=== PATIENT | male | born 1965 | race Caucasian/White ===

== ENCOUNTER 2017-09-28 10:00 | Emergency (ER) | payer SELFPAY ==
[~2017-09-28] VITALS: Ht 175.3 cm; Wt 63.6 kg
[2017-09-28] MEDS ORDERED: KEFLEX500 M1 PO (10:46)
[2017-09-28 10:48] LABS: URINE BILIRUBIN - DIPSTICK NEGATIVE (NEGATIVE); URINE BLOOD DIPSTICK NEGATIVE (NEGATIVE); URINE CLARITY CLOUDY; URINE COLOR YELLOW; URINE GLUCOSE - DIPSTICK NEGATIVE (NEGATIVE); URINE KETONE NEGATIVE (NEGATIVE); URINE LEUK ESTERASE NEGATIVE (NEGATIVE); URINE NITRITE - DIPSTICK NEGATIVE (Negative); URINE PROTEIN - DIPSTICK NEGATIVE (NEG-TRACE); URINE SPECIFIC GRAVITY 1.015; URINE UROBILINOGEN - DIPSTICK 0.2 E.U./dL (0.2)
[2017-09-28 10:56] LABS: URINE AMORPH SEDIMENT MANY hpf (NONE-FER)
[2017-09-28 11:00] VITALS: BP 122/89
[2017-09-28] MEDS ORDERED: ZOFRAN ODT4 MG PO (11:00)
== END 2017-09-28 11:00 | disposition home or self-care (01) | DRG 690 ==
LOC: ED 10:00
PROVIDERS: Emergency Medicine
DX: N39.0 Urinary tract infection, site not specified (principal); F41.9 Anxiety disorder, unspecified; N41.1 Chronic prostatitis

== ENCOUNTER 2017-10-09 19:42 | Emergency (ER) | payer SELFPAY ==
[~2017-10-09] VITALS: Ht 175.3 cm; Wt 73.0 kg
[~2017-10-09 19:42] MED LIST: KEFLEX500 M1 PO; ZOFRAN ODT4 MG PO
[2017-10-09 20:18] LABS: HEMATOCRIT 44.8 % (39.0-50.0); MEAN CORPUSCULAR HGB 31.4 pG CALC (26.0-32.0); MEAN CORPUSCULAR HGB CONC 35.7 g/L CALC (32.0-36.0); RED BLOOD COUNT 5.09 mill/uL (4.70-6.10); RED CELL DISTRI WIDTH 13.7 % (11.5-15.5)
[2017-10-09 20:32] LABS: ALBUMIN 4.4 g/dL (3.2-5.0); ALKALINE PHOSPHATASE 65 u/l (38-126); AMYLASE 97 u/l (30-110); ANION GAP 17 (6-22 (CALC)); BILIRUBIN, TOTAL 1.1 mg/dL (0.0-1.4); BUN 16 mg/dL (9-20); BUN/CREATININE RATIO 23 (12-20 (CALC)); CARBON DIOXIDE 27 mmol/l (22-30); CHLORIDE 89 mmol/l (95-108); CREATININE 0.7 mg/dL (0.7-1.3); GFR > 60 ML/MIN (>=60 (CALC)); GFR FOR AFR.AMER. > 60 ML/MIN (>=60 (CALC)); LIPASE 453 u/l (23-300); MAGNESIUM 1.9 mg/dL (1.6-2.3); POTASSIUM 4.6 mmol/l (3.5-5.1); SGOT/AST 23 u/l (17-59); SGPT/ALT 34 u/l (21-72); SODIUM 129 mmol/l (137-146); TOTAL PROTEIN 7.3 g/dL (6.3-8.2)
[2017-10-09 21:09] LABS: URINE BILIRUBIN - DIPSTICK NEGATIVE (NEGATIVE); URINE BLOOD DIPSTICK NEGATIVE (NEGATIVE); URINE COLOR YELLOW; URINE GLUCOSE - DIPSTICK NEGATIVE (NEGATIVE); URINE KETONE 15 mg/dL (NEGATIVE); URINE LEUK ESTERASE NEGATIVE (NEGATIVE); URINE NITRITE - DIPSTICK NEGATIVE (Negative); URINE PROTEIN - DIPSTICK NEGATIVE (NEG-TRACE); URINE UROBILINOGEN - DIPSTICK 0.2 E.U./dL (0.2)
[2017-10-09 21:36] LABS: URINE CLARITY CLEAR
[2017-10-09] MEDS ORDERED: AMBIEN10 MG PO (21:54)
[2017-10-09] MEDS ORDERED: EQ MAGNESIUM CI1 SOL PO (21:54)
[2017-10-10 00:19] VITALS: BP 149/88
== END 2017-10-09 22:15 | disposition home or self-care (01) | DRG 392 ==
LOC: ED 19:42
PROVIDERS: Family Medicine
DX: K59.00 Constipation, unspecified (principal); E87.1 Hypo-osmolality and hyponatremia; G47.00 Insomnia, unspecified; R53.1 Weakness
CPT/HCPCS: J2060

== ENCOUNTER 2017-11-03 11:26 | Observation (INO) | payer SELFPAY ==
[~2017-11-03] VITALS: Ht 175.3 cm; Wt 57.0 kg
[~2017-11-03 11:26] MED LIST changes: +AMBIEN10 MG PO; +EQ MAGNESIUM CI1 SOL PO
[2017-11-03] MEDS ORDERED: CITALOPRAM20 MG PO (11:34)
[2017-11-03] MEDS ORDERED: LORAZEPAM0.5 MG PO (11:35)
--- NOTE | 2017-11-03 11:36 | NUR ---
PT TO ROOM FOR EXAM
--- NOTE | 2017-11-03 11:44 | NUR ---
WHILE SPEAKING WITH DOCTOR PT BEGINS TELLING DOCTOR THAT HE IS HAVING CHEST PRESSURE ALSO, NOT BEING ABLE TO SLEEP AT NIGHT, CRYING, STATES HE THINKS IT IS ALL ANXIETY.
--- NOTE | 2017-11-03 11:55 | NUR ---
UNABLE TO LOCATE BLADDER SCANNER ON ICU/MED SURG/PACU/IV THERAPY OR OR. NOTIFIED, WILL DO A CATHETER TO CHECK HOW MUCH URINE IS IN BLADDER
--- NOTE | 2017-11-03 12:05 | NUR ---
CATHED PT FOR URINE AND AMOUNT IN BLADDER, ONLY 200CC OF DARK YELLOW URINE OBTAINED. PT TOLERATED WELL
[2017-11-03 12:19] LABS: HEMATOCRIT 41.3 % (39.0-50.0); HEMOGLOBIN 15.1 g/dl (14.0-18.0); IMMATURE GRANULOCYTES 0.7 % (0.0-1.0); MEAN CELL VOLUME 85.9 fL CALC (80.0-100.0); MEAN CORPUSCULAR HGB 31.4 pG CALC (26.0-32.0); MEAN CORPUSCULAR HGB CONC 36.6 g/L CALC (32.0-36.0); NEUT# 3.02 thou/uL (1.82-7.42); RED BLOOD COUNT 4.81 mill/uL (4.70-6.10); RED CELL DISTRI WIDTH 13.8 % (11.5-15.5)
[2017-11-03 12:23] LABS: ALBUMIN 4.2 g/dL (3.2-5.0); ALKALINE PHOSPHATASE 63 u/l (38-126); ANION GAP 19 (6-22 (CALC)); BILIRUBIN, TOTAL 1.6 mg/dL (0.0-1.4); BUN 12 mg/dL (9-20); BUN/CREATININE RATIO 19 (12-20 (CALC)); CARBON DIOXIDE 19 mmol/l (22-30); CHLORIDE 93 mmol/l (95-108); CREATININE 0.7 mg/dL (0.7-1.3); GFR > 60 ML/MIN (>=60 (CALC)); GFR FOR AFR.AMER. > 60 ML/MIN (>=60 (CALC)); LIPASE 343 u/l (23-300); POTASSIUM 3.8 mmol/l (3.5-5.1); SGOT/AST 23 u/l (17-59); SGPT/ALT 40 u/l (21-72); SODIUM 128 mmol/l (137-146); TOTAL PROTEIN 7.3 g/dL (6.3-8.2)
[2017-11-03 12:26] LABS: URINE BILIRUBIN - DIPSTICK NEGATIVE (NEGATIVE); URINE BLOOD DIPSTICK NEGATIVE (NEGATIVE); URINE COLOR YELLOW; URINE GLUCOSE - DIPSTICK NEGATIVE (NEGATIVE); URINE KETONE >=80 mg/dL (NEGATIVE); URINE LEUK ESTERASE NEGATIVE (NEGATIVE); URINE NITRITE - DIPSTICK NEGATIVE (Negative); URINE PH 7.5 (4.5-8.0); URINE PROTEIN - DIPSTICK NEGATIVE (NEG-TRACE); URINE UROBILINOGEN - DIPSTICK 0.2 E.U./dL (0.2)
--- NOTE | 2017-11-03 12:27 | NUR ---
PT RESTING QUIETLY, NO CHEST PRESSURE AT THIS TIME
[2017-11-03 12:32] LABS: BARBITURATES NEGATIVE (NEGATIVE); COCAINE NEGATIVE (NEGATIVE); METHADONE NEGATIVE (NEGATIVE); OXCYCODONE NEGATIVE (NEGATIVE); TETRAHYDROCANNABIONOL NEGATIVE (NEGATIVE); TRICYLIC ANTIDEPRESSANTS NEGATIVE (NEGATIVE)
[2017-11-03 12:34] LABS: URINE CLARITY SL CLOUDY
--- NOTE | 2017-11-03 12:56 | NUR ---
STOOD OUTSIDE OF PTS DOOR CHARTING FOR SEVERAL MIN, NO TWITCHING NOTED, SOON I WALKED INTO PTS ROOM, PT BEGAN TWITCHING ALL OVER. ASKED PT IF THERE WAS A REASON FOR THIS AND HE SAID HE JUST DIDNT HAVE THE URGE TO DO SO BEFORE.
--- NOTE | 2017-11-03 13:25 | NUR ---
FLUIDS INFUSING, EMS IV SITE HEALTHY. PT SPEAKING TO DOCTOR AABOUT POSSIBLE ADMISSION
--- NOTE | 2017-11-03 13:32 | NUR ---
PT DENIES ANY CHEST PAIN, ALTHOUGH I HAVE ASKED SEVERAL TIMES SINCE ARRIVAL. PT SISTER IN LAW REMAINS AT BEDSIDE. VITAL SIGNS STABLE.
--- NOTE | 2017-11-03 14:01 | NUR ---
PT UP TO BEDSIDE COMMODE WITH ASSISTANCE.
--- NOTE | 2017-11-03 14:13 | NUR ---
NO STOOL SO FAR, STARTED PT ON MAG CITRATE PER ORDER, AWAITING BED ASSIGNMENT FOR ADMISSION
--- NOTE | 2017-11-03 14:15 | NUR ---
PT REMAINS CHEST PAIN FREE, PT STATES HE NEVER REALLY HAD CHEST PAIN JUST AN ANXIETY FEELING LIKE HE NORMALLY GETS.
--- NOTE | 2017-11-03 14:34 | NUR ---
PT CAME FROM ER VIA STRETCHER BY DOMINGO. FLAME CUTTER IN ROOM FOR STAND BY ASSIST TO SCALE THEN TO BED. SAFETY PRECAUTIONS REINFORCED AND CALL LIGHT IN REACH.
[2017-11-03 14:35] VITALS: BP 134/76
--- NOTE | 2017-11-03 14:38 | NUR ---
REPORT GIVEN TO FLOOR FOR CONTINUATION OF CARE. PT TAKEN TO FLOOR WITH TELEMETRY
--- NOTE | 2017-11-03 15:34 | NUR ---
HENNY BEARD AT BEDSIDE TO ASSESS PT. FAMILY IN ROOM. ASSESSMENT DONE TELE IN PLACE. RESPS EVEN AND UNLABORED. # 20 LAC THAT APPEARS HEALTHY. PT STATED THAT HE HAS BEEN FEELING WEAK FOR DAYS. CALL LIGHT IN REACH.
[2017-11-03 16:18] VITALS: BP 131/77
--- NOTE | 2017-11-03 19:00 | NUR ---
PT RESTING IN BED WATCHING TV AT THIS TIME. PT IS ALERT AND ORIENTED X3. PERRLA. SHIFT ASSESSMENT COMPLETED AT THIS TIME. IV PATENT. CALL LIGHT IN REACH. PT VERBALIZED UNDERSTANDING OF HOW TO USE THE CALL LIGHT. PLAN OF CARE REVIEWED WITH PT. WILL CONTINUE TO MONITOR
[2017-11-03 20:08] VITALS: BP 114/72
--- NOTE | 2017-11-03 23:26 | NUR ---
PT REPORTS HAVING A SMALL FORMED BOWEL MOVEMENT.
--- NOTE | 2017-11-04 | NUR ---
PT RESTING IN BED WITH EYES CLOSED. RESP ARE EVEN AND UNLABORED. NO DISTRESS NOTED. CALL LIGHT IN REACH. WILL CONTINUE TO MONITOR
[2017-11-04 00:44] VITALS: BP 107/66
--- NOTE | 2017-11-04 04:00 | NUR ---
PT RESTING IN BED WITH EYES CLOSED. RESP ARE EVEN AND UNLABORED. NO DISTRESS NOTED. CALL LIGHT IN REACH. WILL CONTINUE TO MONITOR
[2017-11-04 04:26] VITALS: BP 122/75
--- NOTE | 2017-11-04 04:30 | NUR ---
LAB INTO DRAW AM LABS
--- NOTE | 2017-11-04 07:11 | NUR ---
REPORT RECEIVED BY BENITO. PT IS RESTING IN BED WITH NO S/S OF DISTRESS NOTED. PT DENEIS NEEDS AT THIS TIME.CALL LIGHT IN REACH.
[2017-11-04 07:31] VITALS: BP 115/73
--- NOTE | 2017-11-04 08:00 | NUR ---
ASSESSMENT DONE TELE IN PLACE. RESPS EVEN AND UNLABORED. PT DENIES PAIN AT THIS TIME. PT IS ANXIOUS TX VERBAL CUES AND POC DISCUSSED PT VERBALIZED UNDERSTANDING. NS 100ML/HR INFUSING WELL. SAFETY PRECAUTIONS REINORCED AND CALL LIGHT IN REACH.
--- NOTE | 2017-11-04 08:40 | NUR ---
HENNY BEARD AT BEDSIDE TO ASSESS PT.
[2017-11-04 11:09] VITALS: BP 100/74
--- NOTE | 2017-11-04 12:03 | NUR ---
PT IS SEMI FOWLERS IN BED. PT STATED THAT HE IS TRYING TO EAT HIS LUNCH. PT DENIES NEEDS AT THIS TIME. CALL LIGHT IN REACH.
--- NOTE | 2017-11-04 13:25 | NUR ---
DR. URIAS AT BEDSIDE TO ASSESS PT.
[2017-11-04] MEDS ORDERED: LORAZEPAM0.5 MG PO (14:39)
--- NOTE | 2017-11-04 15:50 | NUR ---
Discharge instructions given. Patient verbalizes understanding of same. Discharged in stable condition via Wheelchair to Home with staff. All belongings sent with pt.
== END 2017-11-04 15:50 | disposition home or self-care (01) | DRG 313 ==
LOC: ED 11:26 → ED-I 11:50 → ED 11:50 → ED-I 13:14 → ED 13:33 → MS2 13:34
PROVIDERS: Family Medicine; ADMIT Internal Medicine; ATTEND Internal Medicine
DX: R07.89 Other chest pain (principal); F32.9 Major depressive disorder, single episode, unspecified; F41.1 Generalized anxiety disorder; N41.1 Chronic prostatitis; K56.41 Fecal impaction; R94.31 Abnormal electrocardiogram [ECG] [EKG]
CPT/HCPCS: G0378; Q9967